=== PATIENT | female | born 1945 | race Caucasian/White ===

== ENCOUNTER 2023-03-27 15:38 | Emergency (ER) | payer BC ==
[~2023-03-27] VITALS: Ht 167.6 cm; Wt 72.1 kg
[2023-03-27 16:41] LABS: BASOPHILS % (AUTO) 0.7 % (0.0-2.0); EOSINOPHILS # (AUTO) 0.2 K/uL (0.0-0.7); EOSINOPHILS % (AUTO) 4.7 % (0.0-6.0); HEMATOCRIT 36 % (33-45); HEMOGLOBIN 12.3 g/dL (11.5-14.8); LYMPHOCYTES # (AUTO) 1.3 K/uL (0.8-4.8); LYMPHOCYTES % (AUTO) 27.5 % (20.0-44.0); MEAN CORPUSCULAR HEMOGLOBIN 31 PG (26.0-33.0); MEAN CORPUSCULAR HGB CONC 34 g/dl (31.0-36.0); MEAN CORPUSCULAR VOLUME 92 fL (82-100); MONOCYTES # (AUTO) 0.4 K/uL (0.1-1.30); MONOCYTES % (AUTO) 9.3 % (2.0-12.0); NEUTROPHILS # (AUTO) 2.6 K/uL (1.8-8.9); NEUTROPHILS % (AUTO) 57.8 % (43.0-81.0); PLATELET COUNT (AUTO) 430 K/uL (150-450); RED BLOOD CELL COUNT(AUTO) 3.96 MIL/uL (4.0-5.2); WHITE BLOOD COUNT (AUTO) 4.6 K/uL (4.3-11.0)
[2023-03-27 16:57] LABS: ALANINE AMINOTRANSFERASE 18 U/L (12-78); ALBUMIN 3.4 g/dL (3.4-5.0); ALKALINE PHOSPHATASE 99 U/L (46-116); ASPARTATE AMINOTRANSFERASE 25 U/L (15-37); BILIRUBIN,DIRECT 0.1 mg/dL (0.0-0.2); BILIRUBIN,TOTAL 0.4 mg/dL (0.2-1.0); CALCIUM, SERUM 10.9 mg/dL (8.5-10.1); CARBON DIOXIDE 26 mmol/L (21-32); CHLORIDE 102 mmol/L (98-107); CREATININE 0.8 mg/dL (0.6-1.3); GLUCOSE 99 mg/dL (74-106); LIPASE 36 U/L (73-393); POTASSIUM 3.9 mmol/L (3.5-5.1); SODIUM SERUM 137 mmol/L (136-145); TOTAL PROTEIN, SERUM 7.4 g/dL (6.4-8.2); UREA NITROGEN, BLOOD 10 mg/dL (7-18)
[2023-03-27] MEDS ORDERED: ONDANSETRON HCL/PF 4 MG/2 ML VIAL IVP ONE (17:00)
[2023-03-27] MEDS ORDERED: MORPHINE SULFATE INJ 2 MG/ML DISP.SYRIN IV ONE ×2 (17:00→19:00)
[2023-03-27] MEDS ORDERED: IV NS 0.9% 250 ML BAG IV ONE (17:00)
[2023-03-27 17:38] VITALS: TEMP 98.3
[2023-03-27] MEDS ORDERED: diphenhydrAMINE HCL 50 MG/ML VIAL ONE (18:39)
[2023-03-27] MEDS ORDERED: PROCHLORPERAZINE EDISYLATE 10 MG/2 ML VIAL ONE (18:39)
[2023-03-27] MEDS ORDERED: AMLO-213 PO (18:55)
[2023-03-27] MEDS ORDERED: PARO-64 PO (18:55)
[2023-03-27] MEDS ORDERED: LANS30CA56 PO (18:55)
[2023-03-27] MEDS ORDERED: AUBAGIO PO (18:55)
[2023-03-27] MEDS ORDERED: ASPI-1169 PO (18:55)
[2023-03-27] MEDS ORDERED: ASCO-495 PO (18:55)
[2023-03-27] MEDS ORDERED: CHOL500062 PO (18:55)
[2023-03-27] MEDS ORDERED: CELE200C PO (18:55)
[2023-03-27] MEDS ORDERED: ARMO250T2 PO (18:55)
[2023-03-27] MEDS ORDERED: GABA600T12 PO ×2 (18:55)
[2023-03-27] MEDS ORDERED: ESTR0.5T PO (18:55)
[2023-03-27] MEDS ORDERED: LOSA25TA27 PO (18:55)
[2023-03-27] MEDS ORDERED: METO25TA6 PO (18:55)
[2023-03-27] MEDS ORDERED: MORPHINE SULFATE INJ 2 MG/ML DISP.SYRIN ONE (18:58)
[2023-03-27] MEDS ORDERED: diphenhydrAMINE HCL 50 MG/ML VIAL IV ONE (19:00)
[2023-03-27] MEDS ORDERED: PROCHLORPERAZINE EDISYLATE 10 MG/2 ML VIAL IVP ONE (19:00)
[2023-03-27 20:12] VITALS: BP 160/65; O2SAT 96
[2023-03-27] MEDS ORDERED: ONDA4TAB5 PO (20:21)
[2023-03-27] MEDS ORDERED: MECL-159 PO (20:21)
== END 2023-03-27 21:00 | disposition left against medical advice (07) ==
LOC: ER 15:52
DX: R42 Dizziness and giddiness (principal); R51.9 Headache, unspecified; G35 Multiple sclerosis; R11.2 Nausea with vomiting, unspecified; R19.7 Diarrhea, unspecified; R94.31 Abnormal electrocardiogram [ECG] [EKG]; I10 Essential (primary) hypertension; Z87.442 Personal history of urinary calculi; Z88.8 Allergy status to other drugs, medicaments and biological substances; Z79.899 Other long term (current) drug therapy
CPT/HCPCS: 99285; 70450; 96374; 96375; 71045; 96361; 93005; 96376; 74176; 85025; 80048; 83690; 80076; 36415; 84484; J0780; J1200; J2405; J7030; J2270 ×2